=== PATIENT | female | born 1955 | race American Indian/Alaskan Native ===

== ENCOUNTER 2022-02-03 12:45 | Emergency (ER) | payer MEDICAID, MEDICARE ==
[2022-02-03 13:33] LABS: ACETAMINOPHEN 9 ug/mL (10-30 (Therapeutic)); ANION GAP 10.1 mEq/L (7-13); CHLORIDE,CL 109 mmol/L (98-107); SODIUM,NA 139 mmol/L (136-145)
[2022-02-03 13:34] LABS: ESTIMATED GFR 32 mL/min (>=60)
[2022-02-03] MEDS ORDERED: Sodium Chloride 0.9% 1,000 ML IV ONE (13:39)
[2022-02-03] MEDS ORDERED: Ondansetron 4 MG/2 ML SDV IVPUSH ONE (14:57)
== END 2022-02-03 15:57 | disposition home or self-care (01) ==
LOC: DL.ED 12:45
DX: K29.00 Acute gastritis without bleeding (principal); K59.00 Constipation, unspecified; Z79.899 Other long term (current) drug therapy; Z79.4 Long term (current) use of insulin
CPT/HCPCS: 36415; 74019; 80053; 80143; 81001; 82150; 83605; 83690; 85025; 87040; 96361; 96374; 99284; J2405; J7030

== ENCOUNTER 2022-02-10 10:39 | Emergency (ER) | payer MEDICAID ==
[2022-02-10 09:20] LABS: ANION GAP 15.2 mEq/L (7-13); CHLORIDE,CL 109 mmol/L (98-107); SODIUM,NA 144 mmol/L (136-145)
[2022-02-10 09:21] LABS: ESTIMATED GFR 32 mL/min (>=60)
== END 2022-02-10 10:49 | disposition home or self-care (01) ==
LOC: DL.ED 10:39
DX: N20.0 Calculus of kidney (principal); N30.00 Acute cystitis without hematuria; K57.10 Diverticulosis of small intestine without perforation or abscess without bleeding; I10 Essential (primary) hypertension; K21.9 Gastro-esophageal reflux disease without esophagitis; E10.9 Type 1 diabetes mellitus without complications; Z79.899 Other long term (current) drug therapy
CPT/HCPCS: 36415; 74176; 80053; 81001; 83605; 83735; 85025; 86140; 87086; 99284

== ENCOUNTER 2024-04-29 02:12 | Emergency (ER) | payer MEDICARE, MEDICAID ==
[2024-04-29] MEDS: Iopamidol 612 MG/ML 100 ML Bottle IVPUSH ONE (02:35)
[2024-04-29 02:46] LABS: BASOPHILS PERCENT AUTO 0.2 % (0.0-1.0); EOSINOPHILS PERCENT AUTO 0.1 % (1.0-3.0); HEMATOCRIT 33.5 % (37.0-47.0); LYMPHOCYTES PERCENT AUTO 9.9 % (20.5-50.1); MEAN CORPUSCULAR HEMOGLOBIN 25.6 pg (27.0-34.0); MEAN CORPUSCULAR HGB CONC 29.9 g/dL (33.0-35.0); MEAN CORPUSCULAR VOLUME 85.9 fL (80-100); MONOCYTES PERCENT AUTO 4.2 % (2-8); NEUTROPHILS PERCENT AUTO 85.6 % (42.2-75.2); PLATELET COUNT,PLT 304 10^3/uL (150-450)
[2024-04-29] MEDS: Sodium Chloride 0.9% 1,000 ML IV ONE ×2 (03:02→06:09)
[2024-04-29] MEDS: Famotidine 20 MG/2 ML SDV IVPUSH ONE (03:04)
[2024-04-29] MEDS: Ondansetron 4 MG/2 ML SDV IVPUSH ONE (03:04)
[2024-04-29 03:11] LABS: A/G RATIO 1.1; ALANINE AMINOTRANSFERASE,ALT 15 U/L (14-59); ALBUMIN 4.4 g/dL (3.4-5.0); ALKALINE PHOSPHATASE 158 U/L (46-116); ANION GAP 32.5 mEq/L (7-13); ASPARTATE AMNIOTRANSFERASE,AST 15 U/L (15-37); BILIRUBIN TOTAL 1.5 mg/dL (0.2-1.0); BLOOD UREA NITROGEN,BUN 43 mg/dL (7-18); BUN/CREATININE RATIO 13.9 (No establ ref range); CALCIUM 9.7 mg/dL (8.5-10.1); CARBON DIOXIDE,CO2 14 mmol/L (21-32); CHLORIDE,CL 108 mmol/L (98-107); EST CRCL DRUG DOSING (CG) 12.29 mL/min; ESTIMATED GFR 16 mL/min (>=60); GLUCOSE RANDOM 175 mg/dL (70-99); LIPASE 26 U/L (16-77); MAGNESIUM 2.4 mg/dL (1.8-2.4); POTASSIUM,K 4.5 mmol/L (3.5-5.1); PROTEIN TOTAL,TP 8.4 g/dL (6.4-8.2); SODIUM,NA 150 mmol/L (136-145)
[2024-04-29 03:12] LABS: ETHANOL BLOOD MEDICAL < 3 mg/dL (0)
[2024-04-29] MEDS: GI Cocktail Oral Solution 30 ML PO ONE (04:03)
[2024-04-29 04:08] LABS: LACTIC ACID 2.8 mmol/L (0.4-2.0)
[2024-04-29] MEDS: Labetalol 20 MG/4 ML Syringe IVPUSH ONE ×2 (05:28→12:53)
[2024-04-29] MEDS: Pantoprazole 40 MG Vial IVPUSH ONE (05:30)
[2024-04-29] MEDS: Promethazine 25 MG/ML SDV IM ONE (05:53)
[2024-04-29 06:17] LABS: APPEARANCE,URINE CLEAR (CLEAR); BILIRUBIN,URINE NEGATIVE (NEGATIVE); COLOR,URINE YELLOW (YELLOW); GLUCOSE,URINE NEGATIVE (NEGATIVE); KETONES,URINE 80 (NEGATIVE); LEUKOCYTE ESTERASE,URINE NEGATIVE (NEGATIVE); NITRITE,URINE NEGATIVE (NEGATIVE); OCCULT BLOOD,URINE TRACE-INTACT (NEGATIVE); PROTEIN,URINE 100 (NEGATIVE); UROBILINOGEN,URINE 0.2 mg/dL (0.2-1.0)
[2024-04-29 06:21] LABS: AMPHETAMINES,URINE NEGATIVE (NEGATIVE); BARBITURATES,URINE NEGATIVE (NEGATIVE); BENZODIAZEPINE,URINE NEGATIVE (NEGATIVE); MDMA (ECSTASY), URINE NEGATIVE (NEGATIVE); METHADONE,URINE NEGATIVE (NEGATIVE); METHAMPHETAMINES,URINE NEGATIVE (NEGATIVE); OPIATES,URINE NEGATIVE (NEGATIVE); OXYCODONE,URINE NEGATIVE (NEGATIVE); PHENCYCLIDINE,URINE NEGATIVE (NEGATIVE); TCA,URINE NEGATIVE (NEGATIVE)
[2024-04-29 06:30] LABS: RBC,URINE 0-5 /HPF (0-5)
[2024-04-29 06:31] LABS: BACTERIA,URINE MANY /HPF (0-FEW/HPF); EPITHELIAL CELLS,URINE FEW /HPF (NOT SEEN)
[2024-04-29 06:32] LABS: MUCUS,URINE RARE /LPF (NOT SEEN)
[2024-04-29] MEDS: Piperacillin/Tazobactam 3.375 GM in Sodium Chloride 0.9% 100 ML IV ONE (06:46)
[2024-04-29] MEDS: Sodium Chloride 0.9% 1,000 ML IV SCH (07:32)
[2024-04-29 13:24] LABS: BASOPHILS PERCENT AUTO 0.2 % (0.0-1.0); HEMATOCRIT 31.3 % (37.0-47.0); HEMOGLOBIN 9.6 g/dL (12.0-16.0); LYMPHOCYTES PERCENT AUTO 12.6 % (20.5-50.1); MEAN CORPUSCULAR HEMOGLOBIN 26.3 pg (27.0-34.0); MEAN CORPUSCULAR HGB CONC 30.7 g/dL (33.0-35.0); MEAN CORPUSCULAR VOLUME 85.8 fL (80-100); MONOCYTES PERCENT AUTO 5.5 % (2-8); NEUTROPHILS PERCENT AUTO 81.7 % (42.2-75.2); PLATELET COUNT,PLT 277 10^3/uL (150-450); RED BLOOD CELL COUNT 3.65 10^6/uL (4.2-5.4); WHITE BLOOD CELL COUNT,WBC 9.8 10^3/uL (5.0-10.0)
[2024-04-29 13:36] LABS: HEMOGLOBIN A1C 5.9 % (<5.7)
[2024-04-29 13:42] LABS: A/G RATIO 0.9; ALBUMIN 3.7 g/dL (3.4-5.0); ANION GAP 26.1 mEq/L (7-13); BUN/CREATININE RATIO 13.5 (No establ ref range); CALCIUM 8.4 mg/dL (8.5-10.1); CREATININE 2.29 mg/dL (0.55-1.02); EST CRCL DRUG DOSING (CG) 16.63 mL/min; POTASSIUM,K 4.1 mmol/L (3.5-5.1); PROTEIN TOTAL,TP 7.6 g/dL (6.4-8.2)
[2024-04-29] MEDS: amLODIPine 5 MG Tab PO ONE (15:02)
== END 2024-04-29 15:58 | disposition home or self-care (01) ==
LOC: DL.ED 02:12
DX: N17.9 Acute kidney failure, unspecified (principal); E86.0 Dehydration; I16.1 Hypertensive emergency; D64.9 Anemia, unspecified; F12.10 Cannabis abuse, uncomplicated; E87.0 Hyperosmolality and hypernatremia; E10.22 Type 1 diabetes mellitus with diabetic chronic kidney disease; I12.9 Hypertensive chronic kidney disease with stage 1 through stage 4 chronic kidney disease, or unspecified chronic kidney disease; N18.9 Chronic kidney disease, unspecified; Z79.899 Other long term (current) drug therapy
CPT/HCPCS: 36415; 51702; 71045; 74177; 76705; 80053; 80305; 80307; 81001; 83036; 83605; 83690; 83735; 84484; 85025; 87040; 87086; 87088; 87186; 93005; 93010; 96361; 96365; 96372; 96375; 96376; 99284; 99285; A9270; J1920; J2405; J2470; J2543; J2550; J7030; Q9967